=== PATIENT | male | born 1980 | race Two or more races ===

== ENCOUNTER 2024-03-21 17:29 | Emergency (ER) | payer MEDICAID, OTHER ==
[~2024-03-21] VITALS: Ht 170.2 cm; Wt 80.3 kg
[2024-03-21 18:59] LABS: *BILIRUBIN,URIN NEGATIVE (NEGATIVE); *BLOOD, URINE NEGATIVE (NEGATIVE); *CLARITY,URINE CLEAR (CLEAR); *COLOR,URINE YELLOW (YELLOW); *KETONES,URINE NEGATIVE (NEGATIVE); *PROTEIN,URINE NEGATIVE (NEGATIVE); *UROBILINOGEN,URINE 0.2 E.U./dl (NORMAL); LEUKOCYTE ESTERASE ,URINE NEGATIVE (NEGATIVE); NITRITE, URINE NEGATIVE (NEGATIVE); UGLUCOSE NEGATIVE (NEGATIVE)
[2024-03-21] MEDS ORDERED: IBUP-1955 PO (20:26)
[2024-03-21] MEDS ORDERED: diphenhydrAMINE 50 MG/1 ML VIAL ONE (20:28)
[2024-03-21] MEDS ORDERED: FAMOTIDINE. 20 MG/2 ML VIAL IV ONE (20:29)
[2024-03-21] MEDS: diphenhydrAMINE 50 MG/1 ML VIAL IV ONE (20:37)
[2024-03-21] MEDS: FAMOTIDINE. 20 MG/2 ML VIAL IV ONE (20:37)
[2024-03-21 21:17] VITALS: BP 122/85; TEMP 98.6; O2SAT 100
== END 2024-03-21 21:18 | disposition home or self-care (01) ==
LOC: ER 17:31
DX: M54.9 Dorsalgia, unspecified (principal); Z79.1 Long term (current) use of non-steroidal anti-inflammatories (NSAID)
CPT/HCPCS: 99284; 96374; 96375; 81003; J1200; J3490; A4606; A4663